=== PATIENT | female | born 1955 | race Caucasian/White ===

== ENCOUNTER → 2017-06-01 | Outpatient (CLI) | payer OTHER ==
[~2017-06-01] MED LIST: CLX20 PO; SIMV40TA2 PO; SYN50 PO; TRAZ50TA35 PO
--- NOTE | 2017-06-01 15:21 | MAMMOGRAPHY REPORT ---
UNILATERAL LEFT DIGITAL DIAGNOSTIC MAMMOGRAM TOMOSYNTHESIS WITH CAD AND TARGETED LEFT ULTRASOUND: CLINICAL HISTORY: Callback from screening mammogram for left breast asymmetry. TECHNIQUE: Breast tomosynthesis in addition to standard 2D mammography was performed. Current study was also evaluated with a Computer Aided Detection (CAD) system. Spot compression left CC, left X CC L, left MLO tomosynthesis images including C views were obtained. COMPARISON: Comparison is made to exams dated: 05/20/2017 mammogram, 05/19/2016 mammogram, 05/28/2015 mammogram, 05/16/2015 mammogram, 06/05/2014 mammogram, and 05/15/2014 mammogram - [facility]. BREAST COMPOSITION: There are scattered areas of fibroglandular density in the left breast. FINDINGS: Spot compression views demonstrate an obscured mass at the anterior aspect of the lumpectom y bed in the left upper outer quadrant measuring approximately 13 mm. The finding is new compared to prior exams. Targeted ultrasound was performed of the left upper outer quadrant in the region of the mammographic mass. In the left breast at 1:00, approximately 3 cm from the nipple, there is a hypoechoic solid-ap pearing mass with internal vascularity measuring 12 x 5 x 11 mm. The margins are not circumscribed. This is located immediately adjacent to an area of hypoechoic shadowing consistent with postsurgical scarring. This corresponds with the mammographic mass and is indeterminant. Recommend ultrasound-g uided core needle biopsy for further evaluation. IMPRESSION: ACR BI-RADS CATEGORY 4: SUSPICIOUS, TARGETED ULTRASOUND ACR BI-RADS CATEGORY 4: SUSPICIO US New 12 mm hypoechoic solid-appearing mass at the anterior aspect of the lumpectomy bed in the left 1: 00 breast. The mass is indeterminate and ultrasound-guided core needle biopsy is recommended or furt her evaluation. A phone call was made to the physician's office to confirm faxed results were received. The patient has been verbally notified of the results. She tentatively scheduled the biopsy before leaving the [employer]. Approximately 10% of breast cancers are not detected with mammography. A negative mammographic report should not delay biopsy if a clinically suggestive mass is present. Soha Humphrey M.D. ah/:06/01/2017 11:08:05 Online Producer: Blank FUENTES(R)(M), [facility] letter sent: Abnormal 4/5 BI-RADS Code: ACR BI-RADS Category 4: Suspicious Ultrasound BI-RADS: ACR BI-RADS Category 4: Suspici ous
== END | disposition home or self-care (01) ==
LOC: C.MAMM 10:41
PROVIDERS: ATTEND Internal Medicine
DX: N64.89 Other specified disorders of breast (principal); N63.20 Unspecified lump in the left breast, unspecified quadrant

== ENCOUNTER → 2017-06-07 | Outpatient (CLI) | payer OTHER ==
--- NOTE | 2017-06-07 08:28 | Discharge Instructions ---
Discharge Instructions Procedure Procedure Date: Jun 07, 2017. Reason for visit: Left Mass. Discharge Discharge Date: Jun 07, 2017. Discharge Diagnosis: post left breast ultrasound guided core biopsy Instructions Activity Recommendations: Additional Limitations (see below) Return to School/Work: no limitations Recommended Home Diet: No Limitations Provider Instructions: ACTIVITY RECOMMENDATIONS: * No lifting, pushing, pulling or exercising the affected side for three days. RETURN TO SCHOOL/WORK: * You may return to work/school after the procedure, but do not perform any strenuous activities for 24 to 48 hours. MEDICATIONS: * Tylenol (two 325 mg) every four to six hours if needed for mild pain (if not allergic to Tylenol). DIET: * Resume previous diet. SPECIAL CARE INSTRUCTIONS: * Keep biopsy site dry for 24 hours. May shower after 24 hours, but do not soak (bathe) incision. * May remove Tegaderm (plastic patch) tomorrow AFTER showering. * Leave the steri-strips on for one week. Allow the steri-strips to fall off by themselves. If not off after one week, you may remove them. You may place a Bandaid crosswise over the strips, if desired. * Apply ice 10 minutes on and 10 minutes off as needed. * Wear a bra at bedtime to sleep more comfortably for 2-3 days. * Your referring physician should have the results after approximately 5 to 7 business days. * Call for unusual bleeding, fever, drainage, etc or if you have any questions call [phone] during normal business hours or after hours call Dr Ramirez, . FOLLOW UP VISIT: Follow-up with Referring Physician as scheduled. Allergies Coded Allergies: Erythromycin (Verified Allergy, Unknown, 08/22/09) Penicillins (Verified Allergy, Unknown, DR ANDRES GAVE OK TO GIVE ANCEF FOR OR 03/31/07, 08/22/09) Kurt Bui Recommendations: Call your doctor if: * Temperature above 101 degrees * Pain not relieved by pain medicine ordered * There is increased drainage or redness from any incision * You have any unanswered questions or concerns. Your Doctors Instructions noted above were prepared by provider Breanne Ramirez. Patient Signature Section: Patient Instructions Signature Page Tati Will Patient (or Guardian) Signature/Date: I have read and understand the instructions given to me by my caregivers. Caregiver/RN/Doctor Signature/Date: The above-named patient and/or guardian has received patient instructions on this date. + Original Patient Signature Page (only) stays with chart. Please make copy for patient.
--- NOTE | 2017-06-14 09:32 | MAMMOGRAPHY REPORT ---
UNILATERAL LEFT DIGITAL DIAGNOSTIC MAMMOGRAM TOMOSYNTHESIS: 06/07/2017 CLINICAL HISTORY: Status post ultrasound guided core biopsy of an indeterminate solid 1.1 cm mass lorenzo r the surgical site in the left upper outer quadrant (1:00 axis). Please refer to the report from left breast ultrasound guided core biopsy performed at the same time for full detail. IMPRESSION: POST PROCEDURE IMAGING FOR MARKER PLACEMENT Please refer to the report from left breast ultrasound guided core biopsy performed at the same time for full detail. Approximately 10% of breast cancers are not detected with mammography. A negative mammographic report should not delay biopsy if a clinically suggestive mass is present. Breanne Ramirez M.D. ay/:06/07/2017 08:27:10 Trimming Press Operator: Omid FUENTES(R)(M), [facility] BI-RADS Code: Post Procedure Imaging For Marker Placement
--- NOTE | 2017-06-14 09:32 | MAMMOGRAPHY REPORT ---
ULTRASOUND GUIDED BIOPSY LEFT BREAST: 06/07/2017 CLINICAL HISTORY: 61-year-old woman with a history of remote left breast cancer status post lumpectom y and radiation therapy. She presents for ultrasound-guided core biopsy of a new 1.1 cm indeterminat e solid mass anterior to the surgical site. COMPARISON: Comparison is made to exams dated: 06/01/2017 ultrasound, 06/01/2017 mammogram, 7 mammogram, 05/19/2016 mammogram, 05/28/2015 mammogram, and 05/16/2015 mammogram - [facility]. PATIENT CONSENT: The procedure, risks and benefits were discussed with the patient and informed conse nt was obtained both verbally and in writing. Specific risks to this procedure include: bleeding, in fection, puncture of adjacent structure, nontarget biopsy, sampling error, pain, metal allergy and me dication reaction. PROCEDURE DESCRIPTION: A time out was performed and the left breast was agreed as the site of biopsy. The skin was prepped and draped in the usual sterile fashion. The solid mass in the 1:00 left breast was chosen as the target for biopsy. Subcutaneous and intraparenchymal 1% buffered lidocaine, with a nd without epinephrine, was administered as local anesthesia. A skin incision was made. Through the incision, 5 samples were taken with a 14 gauge Achieve biopsy device. A ribbon shaped metallic marker was placed at the biopsy site. Hemostasis was achieved after manual compression. The patient tolerat ed the procedure well and there was no immediate complication. The samples were sent to the patholog y department in an appropriately labeled container. Postprocedure left CC and ML tomosynthesis images were obtained. A new ribbon-shaped biopsy marker c lip is seen within the mammographic mass in question. There is minimal postbiopsy hematoma best seen on the ML view. IMPRESSION: ULTRASOUND GUIDED BIOPSY Status post ultrasound guided core biopsy of an indeterminate solid 1.1 cm mass anterior to the lumpe ctomy bed in the 1:00 left breast, with ribbon-shaped biopsy marker clip placed at the site. The patient will receive notification of the biopsy results from her referring physician. Breanne Ramirez M.D. ay/:06/07/2017 08:38:15 Hander In: Omid ORDAZ)(Lupe), [facility]
== END | disposition home or self-care (01) ==
LOC: C.MAMM 07:22
PROVIDERS: ATTEND Internal Medicine
DX: C50.912 Malignant neoplasm of unspecified site of left female breast (principal)

== ENCOUNTER → 2017-07-20 | Outpatient (CLI) | payer OTHER ==
[~2017-07-20] MED LIST changes: +ACET-1311 PO; +ATEN-173 PO; +BUPR100T8 PO; +CHLOR-TAB PO; +CIPR250T3 PO; +CITA40TA4 PO; +GABA-112 PO; +LEVO100T7 PO; +PRAV20TA PO
--- NOTE | 2017-07-20 11:56 | DIAGNOSTIC IMAGING REPORT ---
PET/CT SKULL-THIGH HISTORY: Breast carcinoma BREAST CANCER TECHNIQUE: PET/CT was performed from the base of the skull through the pelvis following the intravenous administration of mCi of F18-FDG. Non-contrast CT imaging was performed over the same range without breath-hold for attenuation correction of PET images and anatomic correlation, but not for primary interpretation as it is not of standard diagnostic quality. CT DOSE: COMPARISON: None. FINDINGS: HEAD AND NECK: Moderately compromised evaluation due to patient somatic motion and muscle spasm/movement. Small focus of increased activity left thyroid bone felt to be artifactual with no anatomic correlate. Mild muscular metabolic activity felt to be secondary to patient motion. CHEST: Increased activity of the posterior paraspinal musculature of the basis of patient motion. Minimal activity within a small hiatal hernia. Minimal activity on a postoperative basis left breast region. Minimal scattered increase in activity of several ribs and/or intercostal regions again without CT correlate. Motion/muscular spasm is suspected as etiology. 6 mm nodule right middle lobe without increased activity ABDOMEN/PELVIS: Below the diaphragm, tracer is distributed physiologically in the gastrointestinal and genitourinary tracts. There is no significant lymphadenopathy and no FDG-avid disease. MUSCULOSKELETAL: There is no FDG-avid or destructive bone lesion. IMPRESSION: 1. Difficult scan to interpret due to considerable patient muscle spasm and motion. 2. Postoperative activity left breast considered unremarkable. 3. Scattered foci of increased activity within the soft tissue neck chest and abdomen, the majority which appears to be secondary to patient motion as well as muscular activity during the scan. 4. Overall, this study is considered to be negative for metastatic disease within the limitations discussed above. The above report was generated using voice recognition software. It may contain grammatical, syntax or spelling errors. Electronically signed by: Man Zuniga M.D. 07/20/2017 11:54 AM Dictated Date/Time: 07/20/2017 11:39 AM
== END | disposition home or self-care (01) ==
LOC: C.PET 06:30
PROVIDERS: ATTEND Internal Medicine Hematology
DX: C50.412 Malignant neoplasm of upper-outer quadrant of left female breast (principal); Z17.0 Estrogen receptor positive status [ER+]

== ENCOUNTER → 2017-08-23 | Outpatient (CLI) | payer OTHER ==
[~2017-08-23] MED LIST changes: -CLX20 PO; -SIMV40TA2 PO; -SYN50 PO; -TRAZ50TA35 PO
--- NOTE | 2017-08-23 14:04 | DIAGNOSTIC IMAGING REPORT ---
LYMPH SENTINEL NODE ID CLINICAL HISTORY: C50.912 Recurrent breast cancer, leftBILATERAL E X0D E BILATERAL bilateral lymphoscintigraphy TECHNIQUE: Bilateral periareolar administration of technetium 99m lymphocele COMPARISON STUDY: None FINDINGS: A total of 0.542 mCi technetium 99m lymphocele was administered in a periareolar distribution of the left breast. A total of 0.517 mCi technetium 99m lymphocele was administered to the right breast and a right periareolar region. IMPRESSION: Successful bilateral periareolar injections for recurrent breast carcinoma. No complications. The above report was generated using voice recognition software. It may contain grammatical, syntax or spelling errors. Electronically signed by: Man Zuniga M.D. 08/23/2017 2:03 PM Dictated Date/Time: 08/23/2017 2:01 PM
== END | disposition home or self-care (01) ==
LOC: C.NUCL 13:11
PROVIDERS: ATTEND Surgery
DX: C50.912 Malignant neoplasm of unspecified site of left female breast (principal)

== ENCOUNTER 2017-08-24 05:13 | Inpatient (IN) | payer OTHER ==
[2017-08-10 14:54] VITALS: BMI 35.0
--- NOTE | 2017-08-10 15:34 | PAT Medication Instructions ---
Service Date Aug 10, 2017. Current Home Medication List Acetaminophen (Tylenol), 650 MG PO PRN Atenolol (Tenormin), 12.5 MG PO QPM Bupropion (Wellbutrin Sr), 100 MG PO QPM Citalopram (Citalopram Hydrobromide), 1 TAB PO QAM Gabapentin (Neurontin), 100 MG PO TID Levothyroxine Sodium (Levothyroxine Sodium), 1 TAB PO QAM Pravastatin (Pravachol ), 40 MG PO QAM [Chlor-Tab], 4 MG PO PRN Medication Instructions For Your Scheduled Surgery - Hold the following medications the morning of surgery: [Chlor-Tab], 4 MG PO PRN - Take the following medications the morning of surgery with a sip of water OTHERWISE NOTHING TO EAT OR DRINK AFTER MIDNIGHT: Acetaminophen (Tylenol), 650 MG PO PRN (may take if needed up to 4 hours prior to surgery) Levothyroxine Sodium (Levothyroxine Sodium), 1 TAB PO QAM Citalopram (Citalopram Hydrobromide), 1 TAB PO QAM Gabapentin (Neurontin), 100 MG PO TID Pravastatin (Pravachol ), 40 MG PO QAM - Take the following medications as scheduled the night before surgery: Acetaminophen (Tylenol), 650 MG PO PRN Atenolol (Tenormin), 12.5 MG PO QPM Bupropion (Wellbutrin Sr), 100 MG PO QPM Gabapentin (Neurontin), 100 MG PO TID If you have any questions please call us at [phone] or [phone] or [phone]
[2017-08-10 16:15] LABS: BASO % 0.8 %; BASO ABS # 0.04 K/uL (0-0.2); EOS % 6.4 %; EOS ABS # 0.32 K/uL (0-0.5); HEMATOCRIT 38.4 % (37-47); HEMOGLOBIN 12.8 g/dL (12.0-16.0); IG# 0.01 K/uL (0.00-0.02); LYMPH % 33.9 %; LYMPH ABS # 1.69 K/uL (1.2-3.4); MEAN CELL VOLUME 88.5 fL (80-100); MEAN CORPUSCULAR HEMOGLOBIN 29.5 pg (25-34); MEAN CORPUSCULAR HGB CONC 33.3 g/dl (32-36); MEAN PLATELET VOLUME 9.9 fL (7.4-10.4); NEUT % 48.7 %; NEUT ABS # 2.43 K/uL (1.4-6.5); PLATELET COUNT 236 K/uL (130-400); RED CELL DISTRIBUTION WIDTH CV 13.7 % (11.5-14.5); RED CELL DISTRIBUTION WIDTH SD 44.8 fL (36.4-46.3); WHITE BLOOD COUNT 4.99 K/uL (4.8-10.8)
[2017-08-10 16:23] LABS: ALBUMIN 3.6 gm/dl (3.4-5.0); CALCIUM 9.2 mg/dl (8.5-10.1); CREATININE 1.28 mg/dl (0.60-1.20); POTASSIUM 4.5 mmol/L (3.5-5.1)
[2017-08-10 16:25] LABS: PTT PATIENT 24.5 SECONDS (21.0-31.0)
[2017-08-10 16:26] LABS: TOTAL PROTEIN 7.2 gm/dl (6.4-8.2)
[~2017-08-24] VITALS: Ht 147.3 cm; Wt 76.7 kg
[~2017-08-24 05:13] MED LIST changes: -CIPR250T3 PO
[2017-08-24 05:45] VITALS: BP 114/74; PULSE 71; TEMP 37.3; O2SAT 98; Ht 147.3 cm; Wt 76.7 kg
[2017-08-24] MEDS ORDERED: SCOPOLAMINE 1.5 MG TDSY TD SCH (06:00)
[2017-08-24] MEDS ORDERED: CLINDAMYCIN IV 900 MG in DEXTROSE 5% 50ML IV SCH (06:00)
[2017-08-24] MEDS: LACTATED RINGER'S 1000ML 1,000 ML IV SCH ×3 (06:01→20:23)
[2017-08-24] MEDS ORDERED: ONDANSETRON INJ 2 MG/ML 2 ML VIAL IV PRN ×2 (06:30→17:30)
[2017-08-24] MEDS ORDERED: EpHEDrine SULFATE INJ 50 MG/ML AMP IV PRN (06:30)
[2017-08-24] MEDS ORDERED: PROMETHAZINE HCL INJ 12.5 MG in SODIUM CHLORIDE 0.9% 50ML 50 ML IV PRN ×2 (06:30→17:30)
[2017-08-24] MEDS ORDERED: ATROPINE SULFATE 0.1 MG/ML 5ML SYR IV PRN (06:30)
[2017-08-24] MEDS ORDERED: PHENYLEPHRINE 100MCG/ML 5ML SYR IV PRN (06:30)
[2017-08-24] MEDS ORDERED: HYDROmorphone INJ 1 MG/ML SYR IV PRN (06:30)
[2017-08-24] MEDS ORDERED: ROCURONIUM BROMIDE 10 MG/ML 5 ML VIAL IV ONE (06:49)
[2017-08-24] MEDS ORDERED: PROPOFOL IV EMULSION 10 MG/ML 20 ML VIAL IV ONE (06:49)
[2017-08-24] MEDS ORDERED: LIDOCAINE HCL 2% 2 ML VIAL (20MG/ML) ONE (06:49)
[2017-08-24] MEDS ORDERED: MIDAZOLAM HCL 1 MG/ML 2ML VIAL ONE (06:50)
[2017-08-24] MEDS ORDERED: FENTANYL CITRATE INJ 50 MCG/1 ML 2 ML VIAL ONE ×3 (06:50→18:47)
--- NOTE | 2017-08-24 06:51 | History & Physical Bridge Note ---
H&P Re-Evaluation Bridge Note: I have examined the patient, reviewed the History & Physical and in the interval since the performance of the History & Physical I have noted the following changes of clinical significance: No changes noted
[2017-08-24] MEDS ORDERED: BUPIVACAINE 0.25% 30 ML VIAL ONE ×2 (06:58→11:08)
[2017-08-24] MEDS ORDERED: LIDOCAINE/EPINEPHRINE 1% 20 ML VIAL ONE (06:58)
[2017-08-24] MEDS ORDERED: BACITRACIN 50000 UNIT VIAL ONE ×2 (06:59)
[2017-08-24] MEDS ORDERED: CEFAZOLIN SOD 1 GM VIAL ONE (06:59)
[2017-08-24] MEDS ORDERED: GENTAMICIN SULFATE 40 MG/ML 2 ML VIAL ONE (06:59)
[2017-08-24] MEDS ORDERED: ISOSULFAN BLUE 10 MG/ML VIAL 5 ML ONE (07:15)
[2017-08-24] MEDS ORDERED: KETAMINE HCL INJ 50 MG/ML 10 ML VIAL ONE (07:29)
--- NOTE | 2017-08-24 09:39 | [facility] Operative Report ---
Operative Report Operative Date Aug 24, 2017. Pre-Operative Diagnosis -left breast cancer (Dr. Caleb New) -encounter for breast reconstruction following mastectomy (Dr. Ellen Coon) Post-Operative Diagnosis -left breast cancer (Dr. Caleb New) -encounter for breast reconstruction following mastectomy (Dr. Ellen Coon) Procedure(s) Performed Bilateral Breast Mastectomy with Bilateral [place] Lymph Node Biopsy - Dr. New Bilateral Transverse Rectus Abdominus Myocutaneous Flap - Dr. Coon Surgeon Dr. Caleb New, Dr. Ellen Coon Director Of [employer] Surgeon(s) Luis Manuel Fagan PA-C, Yoana Torres PA-C, Liz Villar PA-C Estimated Blood Loss Dr. New -30ml Findings negative sentinel lymph nodes both sides Specimens Frozen #1 Right [place] Lymph Node - STAT specimen sent to lab at 0807 by Kermit Shearer OR Tawana Frozen #2 Left [place] Lymph Node - STAT specimen sent to lab at 0857 by Karolina Gilliam Fresh Specimen: A.) Right Breast - long silk lateral - sent to lab at 0846 by Karolina gilliam B.) Left Breast - long silk lateral - sent to lab at 0936 by Kermit Shearer OR tawana Anesthesia Type General I attest to the content of the Intraoperative Record and any orders documented therein. Any exceptions are noted below.
[2017-08-24] MEDS ORDERED: HYDROmorphone INJ 2 MG/ML SYR/VIAL ONE (09:49)
--- NOTE | 2017-08-24 10:06 | OPERATIVE REPORT ---
DATE OF OPERATION: 08/24/2017 NAME OF OPERATION: Bilateral mastectomy with bilateral sentinel lymph node biopsy. PREOPERATIVE DIAGNOSIS: Left breast cancer with recurrence. POSTOPERATIVE DIAGNOSIS: Same. STAFF SURGEON: Caleb New MD. HARNESS CUTTER: Luis Manuel Fagan PA-C and Yoana Torres PA-C. ANESTHESIA: General. DESCRIPTION OF THE PROCEDURE: The patient was in the operating room on the operating room table in supine position. Her arms were extended. A Cespedes catheter, pneumatic stockings and orogastric tube were placed. After appropriate anesthesia, her chest and abdomen were prepped and draped in usual fashion. We approached the right side first which was the side that was felt to be benign and initially made an incision in the right axilla. Using the Neoprobe, we were able to find the sentinel node. It was sent for frozen section. During the frozen section, we performed mastectomy. Frozen section was negative. Circular incision was made around the nipple areolar complex, then dissecting the breast tissue away from the subcutaneous tissue from the sternum, superiorly to the axilla and then inferiorly and then the breast tissue was dissected away from the chest wall, taking the pectoralis fascia. It was marked with a long silk suture laterally on the right breast tissue. At this point, then we approached the left side which was where the recurrent tumor was. The patient had had previous lumpectomy 20 years prior with radiation treatment. We made an incision through previous scar tissue in the left axilla. We were able to use the Neoprobe to identify a sentinel lymph node which was sent for routine frozen section. During the frozen section, we did perform mastectomy. Frozen section was negative. A circumferential incision was made in the central portion of the breast, incorporating the nipple areolar complex and then the breast tissue was dissected away from the subcutaneous tissue. It was somewhat more adherent secondary to history of radiation treatment and prior surgery. The breast tissue was then dissected away from the pectoralis major muscle with some difficulty secondary to scar tissue from the same etiology and then it was marked with a long silk suture lateral on the left breast tissue. At this point, the axillary incisions were closed, reapproximating the deep tissue using 2-0 plain catgut suture then the skin using 4-[address] Coon took over at this point to proceed with her part of the operation. As a note my assistants both helped with retraction, prepping and draping, exposure, excision of the breast tissue and lymph nodes and then closure of the axilla bilaterally. I attest to the content of the Intraoperative Record and any orders documented therein. Any exception s are noted below.
[2017-08-24] MEDS ORDERED: ACETAMINOPHEN 1000 MG/100 ML IV IV ONE (12:35)
[2017-08-24] MEDS ORDERED: CLINDAMYCIN PHOS 150 MG/ML 2 ML VIAL ONE (12:36)
[2017-08-24] MEDS ORDERED: EpHEDrine SULFATE 50MG/5ML SYR ONE (12:57)
[2017-08-24] MEDS ORDERED: PHENYLEPHRINE 100MCG/ML 5ML SYR ONE ×2 (12:57→13:33)
[2017-08-24] MEDS ORDERED: EpHEDrine SULFATE INJ 50 MG/ML AMP ONE ×2 (12:57→16:15)
[2017-08-24] MEDS ORDERED: PHENYLEPHRINE HCL INJ 10 MG/ML VIAL ONE (13:34)
[2017-08-24] MEDS ORDERED: BUPIVACAINE 0.25% 30 ML VIAL INJ ONE (13:44)
[2017-08-24] MEDS: CHECK SCOPOLAMINE PATCH PLACEMENT SCH (16:00)
[2017-08-24] MEDS ORDERED: ONDANSETRON INJ 2 MG/ML 2 ML VIAL ONE ×2 (16:45→16:50)
[2017-08-24] MEDS ORDERED: DEXAMETHASONE SOD INJ 4 MG/ML VIAL ONE (16:50)
[2017-08-24] MEDS ORDERED: GLYCOPYRROLATE INJ 0.2 MG/ML VIAL ONE (16:58)
[2017-08-24] MEDS ORDERED: NEOSTIGMINE METHYLSULFATE 5 MG/5 ML SYR ONE (16:58)
[2017-08-24] MEDS ORDERED: OXYCODONE/ACETAMINOPHEN 5-325 TAB PO PRN (17:30)
[2017-08-24] MEDS: CHLORPHENIRAMINE PO SCH (17:30)
[2017-08-24] MEDS ORDERED: MoRPHine SULFATE 2 MG/ML CARP IV PRN (17:30)
[2017-08-24] MEDS ORDERED: OXAZEPAM 10MG CAP PO PRN (17:30)
[2017-08-24] MEDS ORDERED: MoRPHine SULFATE 4 MG/ML 1 ML CARP\\VIAL IV PRN (17:30)
[2017-08-24] MEDS ORDERED: DiphenhydrAMINE HCL 50 MG/ML VIAL IV PRN (17:30)
[2017-08-24] MEDS ORDERED: CLINDAMYCIN IV 600 MG in DEXTROSE 5% 50ML 50 ML IV SCH (17:30)
--- NOTE | 2017-08-24 17:40 | [facility] Post Operative Brief Note ---
Immediate Operative Summary Operative Date Aug 24, 2017. Pre-Operative Diagnosis -left breast cancer (Dr. Caleb New) -encounter for breast reconstruction following mastectomy (Dr. Ellen Coon) Post-Operative Diagnosis -left breast cancer (Dr. Caleb New) -encounter for breast reconstruction following mastectomy (Dr. Ellen Coon) Procedure(s) Performed Bilateral Breast Mastectomy with Bilateral [place] Lymph Node Biopsy - Dr. New Bilateral Transverse Rectus Abdominus Myocutaneous Flap - Dr. Coon Surgeon Dr. Caleb New, Dr. Ellen Coon Airline Stewardess Surgeon(s) Luis Manuel Fagan PA-C, Yoana Torres PA-C, Liz Villar PA-C Estimated Blood Loss Dr. [id number] Findings Consistent with Post-Op Diagnosis bilateral flaps pink and viable at close of case Specimens Frozen #1 Right [place] Lymph Node - STAT specimen sent to lab at 0807 by Kermit Shearer OR Tawana Frozen #2 Left [place] Lymph Node - STAT specimen sent to lab at 0857 by Karolina Woody OR Tawana Fresh Specimen: A.) Right Breast - long silk lateral - sent to lab at 0846 by Karolina Woody OR tawnaa B.) Left Breast - long silk lateral - sent to lab at 0936 by Kermit Shearer OR tawana Drains NAZIA x4 Anesthesia Type General Complication(s) none Disposition Disposition: Recovery Room / PACU
[2017-08-24] MEDS: FENTANYL CITRATE INJ 50 MCG/1 ML 2 ML VIAL IV PRN ×4 (18:49→19:06)
[2017-08-24] MEDS ORDERED: KETOROLAC 0.5% OP SOLN 3 ML BTL OP PRN (19:15)
--- NOTE | 2017-08-24 19:21 | Anesthesiology Progress Note ---
Anesthesia Post Op Note Date & Time Aug 24, 2017 at 19:08 Vital Signs Pain Intensity: 7 Vital Signs Past 12 Hours Date Time Temp Pulse Resp B/P (MAP) Pulse Ox O2 Delivery O2 Flow Rate FiO2 08/24/17 19:00 36.4 106 16 116/76 97 Nasal Cannula 3 08/24/17 18:50 36.4 100 16 117/76 98 Nasal Cannula 3 08/24/17 18:40 36.4 103 20 123/82 98 Nasal Cannula 3 08/24/17 18:30 105 16 98/68 97 Nasal Cannula 3 08/24/17 18:20 108 16 97/65 99 Oxymask 10 08/24/17 18:10 110 16 110/87 99 Oxymask 10 08/24/17 18:04 36.3 112 16 97/70 98 Oxymask 10 Notes Mental Status: alert / awake / arousable, participated in evaluation Pt Amnestic to Procedure: Yes Nausea / Vomiting: adequately controlled Pain: adequately controlled Airway Patency, RR, SpO2: stable & adequate BP & HR: stable & adequate Hydration State: stable & adequate Anesthetic Complications: no major complications apparent Pt doing well. Complaining of a foreign body sensation to right eye in PACU with some pain. Right eye was examined. No obvious foreign body noted in eye, under the upper or lower eyelid. Extraocular motion intact and no obvious decrease in visual acuity. Some lacrimation noted. Without doing a fluorescein exam, I cannot rule out a small corneal abrasion, although the patient's eyes were well taped right after induction, throughout intraop period and emergence. Discussed with patient regarding her eye and plan to treat with ketorolac eye drop as well as ofloxacin for three days. Told patient that if eye is not better or there are visual changes, then we will consult improvement coordinator. Pt agreed with plan. Will follow up during our post op round tomorrow.
[2017-08-24] MEDS: OFLOXACIN 0.3% OP SOLN 5 ML BTL OP SCH (19:23)
[2017-08-24 19:50] VITALS: O2SAT 97
[2017-08-24 20:20] VITALS: BP 102/62; PULSE 110; TEMP 36.8; O2SAT 96
[2017-08-24 21:00] VITALS: BP 109/73; PULSE 99; TEMP 36.9; O2SAT 98
[2017-08-24] MEDS ORDERED: IV FLUIDS COMPLETED PRN (21:00)
[2017-08-24] MEDS: CLINDAMYCIN IV 600 MG in DEXTROSE 5% 50ML 50 ML IV SCH (21:21)
[2017-08-24] MEDS: GABAPENTIN 100 MG CAP PO SCH (21:21)
[2017-08-24] MEDS: BuPROPion SR 100 MG TABCR PO SCH (21:22)
[2017-08-24 22:10] VITALS: BP 96/59; PULSE 102; TEMP 37.1; O2SAT 98
[2017-08-24 22:50] VITALS: BP 91/56; PULSE 99; TEMP 37.2; O2SAT 98
[2017-08-25] VITALS (9 sets, daily range): BP systolic 90–120; BP diastolic 57–80; PULSE 82–97; TEMP 37–37.7; O2SAT 77–94
[2017-08-25] MEDS: ACETAMINOPHEN IV 650 MG in EMPTY BAG 0 ML IV PRN
[2017-08-25] MEDS: MoRPHine SULFATE 2 MG/ML CARP IV PRN ×3 (04:07→13:40)
[2017-08-25] MEDS: CHLORPHENIRAMINE PO SCH (05:28)
[2017-08-25] MEDS: CLINDAMYCIN IV 600 MG in DEXTROSE 5% 50ML 50 ML IV SCH (05:28)
[2017-08-25] MEDS: LEVOTHYROXINE 100 MCG TAB PO SCH (05:31)
[2017-08-25] MEDS: OFLOXACIN 0.3% OP SOLN 5 ML BTL OP SCH ×4 (05:33→19:23)
[2017-08-25] MEDS: CHECK SCOPOLAMINE PATCH PLACEMENT SCH ×4 (08:17→23:43)
--- NOTE | 2017-08-25 08:25 | Progress Note ---
Progress Note Date of Service Aug 25, 2017. Progress Note POD #1 s/p bilateral TRAM Doing well. Pain reasonably controlled with Ofirmev, onQ. Refusing narcotics currently afebrile VSS incisions C/D/I on breasts/abdomen both flaps warm and viable umbilicus appears viable JPs all serosanguinous Left breast 20, right breast 30; abdomen 70/60 cc May be OOB if desired; may remove rivero when patient feels ready remain in semifowler's when in bed
[2017-08-25] MEDS ORDERED: BISACODYL 10 MG SUPP PR PRN (08:30)
[2017-08-25] MEDS: MULTIVITAMIN TAB PO SCH (08:49)
[2017-08-25] MEDS: GABAPENTIN 100 MG CAP PO SCH ×3 (08:51→21:12)
[2017-08-25] MEDS: ENOXAPARIN 40 MG/0.4 ML SYR SQ SCH (08:51)
[2017-08-25] MEDS ORDERED: CITALOPRAM 40 MG TAB PO SCH (09:00)
[2017-08-25] MEDS ORDERED: PRAVASTATIN SOD 40 MG TAB PO SCH (09:00)
[2017-08-25 09:09] LABS: BASO % 0.2 %; BASO ABS # 0.02 K/uL (0-0.2); HEMATOCRIT 31.8 % (37-47); HEMOGLOBIN 10.7 g/dL (12.0-16.0); IG# 0.02 K/uL (0.00-0.02); LYMPH % 12.9 %; LYMPH ABS # 1.35 K/uL (1.2-3.4); MEAN CELL VOLUME 88.6 fL (80-100); MEAN CORPUSCULAR HEMOGLOBIN 29.8 pg (25-34); MEAN CORPUSCULAR HGB CONC 33.6 g/dl (32-36); MEAN PLATELET VOLUME 9.6 fL (7.4-10.4); MONO % 12.2 %; MONO ABS # 1.28 K/uL (0.11-0.59); NEUT % 74.5 %; NEUT ABS # 7.79 K/uL (1.4-6.5); PLATELET COUNT 194 K/uL (130-400); RED CELL DISTRIBUTION WIDTH CV 14.2 % (11.5-14.5); WHITE BLOOD COUNT 10.46 K/uL (4.8-10.8)
[2017-08-25 09:22] LABS: INR 1.1 (0.9-1.1)
[2017-08-25 09:32] LABS: CALCIUM 8.4 mg/dl (8.5-10.1); CREATININE 1.38 mg/dl (0.60-1.20); POTASSIUM 4.8 mmol/L (3.5-5.1)
[2017-08-25] MEDS: LACTATED RINGER'S 1000ML 1,000 ML IV SCH ×2 (10:04→21:49)
[2017-08-25] MEDS: DOCUSATE SODIUM 100 MG CAP PO SCH ×2 (10:04→21:14)
--- NOTE | 2017-08-25 10:34 | Anesthesiology Progress Note ---
Anesthesia Post Op Note Date & Time Aug 25, 2017 at 10:24 Vital Signs Vital Signs Past 12 Hours Date Time Temp Pulse Resp B/P (MAP) Pulse Ox O2 Delivery O2 Flow Rate FiO2 08/25/17 07:51 37.2 96 16 102/59 (73) 92 Room Air 08/25/17 07:50 Room Air 08/25/17 03:59 37.4 97 16 90/57 (68) 93 Room Air 08/25/17 00:45 Room Air 08/24/17 22:50 37.2 99 18 91/56 (68) 98 Nasal Cannula 3.0 Notes Mental Status: alert / awake / arousable, participated in evaluation Pt Amnestic to Procedure: Yes Nausea / Vomiting: adequately controlled Pain: adequately controlled Airway Patency, RR, SpO2: stable & adequate BP & HR: stable & adequate Hydration State: stable & adequate Anesthetic Complications: no major complications apparent Spoke with patient regarding complaints of Right eye discomfort after her procedure yesterday. Patient feels much better this morning and her eye feels normal at time of exam and reports only rarely feels as if something is stuck in her eye briefly. She continues to receive Ofloxacin eye gtts and has only used the Ketorolac eye gtts PRN for pain once after the procedure. Eye appears normal on exam with no redness noted or excessive lacrimation. No changes in vision reported by patient. Instructed patient to report if she feels any changes in her condition.
[2017-08-25] MEDS ORDERED: NURSING VERBAL MED ORDER ONE (11:00)
--- NOTE | 2017-08-25 11:03 | OPERATIVE REPORT ---
DATE OF OPERATION: 08/24/2017 PREOPERATIVE DIAGNOSIS: Acquired absence of bilateral breasts due to recurrent left breast carcinoma. PROCEDURE: Bilateral breast reconstruction with pedicled TRAM flap and reinforcement of the abdominal wall with Strattice. SURGEON: Dr. Ellen Coon. NIGHT MANAGER: Liz Villar PA-C and Luis Manuel Fagan PA-C. ANESTHESIA: General. COMPLICATIONS: None. INDICATION FOR THE PROCEDURE: The patient is a 62-year-old female who had a history of left breast carcinoma, status post lumpectomy and radiation and subsequently developed a recurrence. She desired to undergo bilateral mastectomy with immediate breast reconstruction. This was performed in conjunction with Dr. New, who has separately dictated his mastectomy and sentinel lymph node operative report. BRIEF DESCRIPTION OF THE PROCEDURE: The risks, benefits and alternatives of the procedure were explained to the patient, who agreed and signed consent. She was identified and marked in the preoperative holding area. She was brought to the operating room, where she was placed under general anesthesia and mastectomy portion of the procedure was begun by Dr. New. Following removal of the breast tissue, a time-out procedure was performed and new drapes were placed. I began the bilateral TRAM reconstruction. An elliptical skin panel was marked in the lower abdomen. The upper incision was made first and the skin flap was raised. This was accomplished using a 15 blade scalpel into the dermis with the incision deepened through dermis using electrocautery. The subcutaneous tissue was then divided down to rectus fascia in a bevelled fashion. Anterior abdominal skin was then raised superiorly to the xiphoid process as well as to both costal margins. This was accomplished using electrocautery. Next, a tunnel was created between each mastectomy defect in the inferior medial aspect connecting this to the abdomen. Lower abdominal incision was then made using a scalpel. The dermis and subcutaneous tissues were divided to the anterior abdominal fascia using electrocautery. This too was bevelled away from the flap. Attention was then turned to raising the right rectus flap. The umbilicus was circumscribed using a 15 blade scalpel and lower abdominal skin panel was divided in the midline. I began raising the right flap first. Dissection was carried laterally to medially using electrocautery. The end point of dissection was the lateral aspect of the right rectus muscle. The anterior rectus sheath was then opened approximately 1 cm medial to the lateral aspect of the rectus muscle and 1 cm lateral to medial aspect of the muscle. Dissection was undertaken down to the umbilicus. The remainder of the lower portion of the anterior rectus sheath was divided as previously described. Once the inferior most aspect of the rectus muscle was identified, it was carefully divided using electrocautery. Deep inferior epigastric artery and veins were identified at the lateral most aspect of the muscle. They were ligated using Hemoclips proximally and silk ties distally and were then divided. Next, the muscle flap was raised. This was accomplished using bipolar cautery to dissect the rectus muscle off the transversalis fascia and posterior rectus sheath. Dissection was carried superiorly until the costal margin was reached. Once adequate dissection was accomplished, the musculocutaneous flap was then pulled through the tunnel, which had been previously created. This required the rectus muscle to be reflected over the costal margin. Once the vascularity was determined to be adequate, the flap was reflected back on the rectus muscle and placed in the mastectomy defect. The left rectus abdominis myocutaneous flap was raised and pulled through the tunnel in similar fashion. The anterior rectus sheath was sutured to the posterior rectus sheath at the arcuate line, closing down the transversalis fascia. This was accomplished using 0 Prolene horizontal mattress sutures. The donor defect was then reconstructed using a 16 x 20 piece of extra thick Strattice. This was sutured into place medially along the linea alba using 0 Prolene U stitches, which were sutured through the residual anterior rectus sheath along the midline. We then sutured bilaterally to the anterior rectus fascia, which had been previously divided. This was accomplished under tension using 0 Prolene horizontal mattress sutures. It was reinforced using 0 Prolene suture. A hole was made in the Strattice to the umbilicus. Two 15-Niuean Marvin drains were placed in the abdominal donor defect and closure of the abdominal incision was undertaken. This was accomplished suturing Andriy's fascia with 2-0 Vicryl interrupted sutures. Deep dermis was then closed using 2-0 Vicryl interrupted sutures. Superficial dermis was then closed using 2-0 PDO Quill suture. Skin was closed using Dermabond Prineo. Drains were sutured into place using 3-0 nylon sutures. The umbilical incision had been marked for inset prior to closure. Attention was then turned to insetting the flaps. This was performed on the left first followed by the right. Flap was inset into the mastectomy defect and tacked into place using zack. Skin paddle was then marked and incised in the superficial dermis. The buried portion of the flap was deepithelialized using curved Cowart scissors. Throughout this time, there was healthy bright red bleeding. The lateral aspect of each flap did have some poorly perfused fat and this was removed using a 15 blade scalpel with the remaining flap being pink and healthy. The flap was sutured into place using 3-0 PDS interrupted dermal sutures and skin was closed using 3-0 Monocryl running subcuticular suture. This was performed on the right hand side as well. Throughout the procedure, both flaps were healthy pink and bleeding. Dermabond was applied. The drains had been placed prior to closure. Both drains were sutured into place using 3-0 nylon drain sutures. Attention was lastly turned to the umbilicus. Its new location had been marked prior to closure of the abdominal incision. An inverted triangular incision was made in the anterior abdominal wall in order to reconstruct the umbilicus. Skin and subcutaneous fat was removed using Bovie. Once the umbilical stalk was identified, it was inset using 4-0 chromic interrupted half buried mattress sutures. Light dressings and paper tape were applied. The patient was awakened and transferred to recovery in satisfactory condition. Estimated blood loss 125 mL. There were no complications during the procedure. Liz Villar was present and scrubbed throughout the majority of the procedure and was instrumental in assisting in retracting during raising of the flaps, assisting in inset of the Strattice and closing the abdominal wall and assisting in deepithelializing and insetting of the flap. I attest to the content of the Intraoperative Record and any orders documented therein. Any exception s are noted below.
[2017-08-25] MEDS ORDERED: LACTATED RINGER'S 1000ML 1,000 ML IV SCH (15:00)
[2017-08-25] MEDS ORDERED: LACTATED RINGER'S 1000ML 1,000 ML IV ONE (15:00)
[2017-08-25] MEDS: OXYCODONE/ACETAMINOPHEN 5-325 TAB PO PRN ×2 (15:50→19:24)
[2017-08-25] MEDS: CALCIUM CARBONATE 500 MG CHEWABLE PO PRN (19:33)
[2017-08-25] MEDS ORDERED: PANTOprazole SOD 40 MG TAB PO STA (20:05)
[2017-08-25] MEDS ORDERED: LACTATED RINGER'S 1000ML 500 ML IV ONE (20:30)
[2017-08-25] MEDS: PRAVASTATIN SOD 40 MG TAB PO SCH (21:14)
[2017-08-25] MEDS: BuPROPion SR 100 MG TABCR PO SCH (21:14)
[2017-08-25] MEDS: CITALOPRAM 40 MG TAB PO SCH (21:15)
[2017-08-26] MEDS: ACETAMINOPHEN IV 650 MG in EMPTY BAG 0 ML IV PRN ×2 (00:05→06:43)
[2017-08-26] MEDS: CHLORPHENIRAMINE PO SCH (05:44)
[2017-08-26] MEDS: OFLOXACIN 0.3% OP SOLN 5 ML BTL OP SCH ×4 (05:55→19:00)
[2017-08-26] MEDS: LEVOTHYROXINE 100 MCG TAB PO SCH (06:42)
[2017-08-26 07:40] VITALS: BP 127/85; PULSE 82; TEMP 37.2; O2SAT 97
[2017-08-26] MEDS: CHECK SCOPOLAMINE PATCH PLACEMENT SCH ×3 (07:49→23:29)
--- NOTE | 2017-08-26 08:25 | Progress Note ---
Progress Note Date of Service Aug 26, 2017. Progress Note POD #2 s/p bilateral mastectomy/TRAM Hypotension yesterday resolved after fluid bolus, U/O 1700 cc after fluid bolus. emesis x1 overnight. Pain controlled on Percocet today. tmax 37.6 vss. flaps warm/viable with cap refill bilaterally umbilicus appears viable as does abdominal skin JPs serosanguinous right breast 65, left 35 cc; abdomen 150/190 cc Doing better today PT consult; OOB as tolerated today Will d/c rivero when able to ambulate Labs pending encouraged IS due to low sats yesterday/overnight Reglan for nausea
[2017-08-26] MEDS ORDERED: METOCLOPRAMIDE HCL INJ 5 MG/ML 2 ML VIAL IV. PRN (08:30)
[2017-08-26] MEDS: MULTIVITAMIN TAB PO SCH (08:56)
[2017-08-26] MEDS: PANTOprazole SOD 40 MG TAB PO SCH (08:56)
[2017-08-26] MEDS: DOCUSATE SODIUM 100 MG CAP PO SCH ×2 (08:56→21:37)
[2017-08-26] MEDS: GABAPENTIN 100 MG CAP PO SCH ×3 (08:57→21:37)
[2017-08-26] MEDS: ENOXAPARIN 40 MG/0.4 ML SYR SQ SCH (08:57)
[2017-08-26 09:19] LABS: HEMATOCRIT 30.6 % (37-47); HEMOGLOBIN 10.3 g/dL (12.0-16.0); MEAN CELL VOLUME 88.7 fL (80-100); MEAN CORPUSCULAR HEMOGLOBIN 29.9 pg (25-34); MEAN CORPUSCULAR HGB CONC 33.7 g/dl (32-36); MEAN PLATELET VOLUME 9.8 fL (7.4-10.4); PLATELET COUNT 207 K/uL (130-400); RED CELL DISTRIBUTION WIDTH CV 14.2 % (11.5-14.5); RED CELL DISTRIBUTION WIDTH SD 46.2 fL (36.4-46.3); WHITE BLOOD COUNT 11.29 K/uL (4.8-10.8)
[2017-08-26] MEDS: LACTATED RINGER'S 1000ML 1,000 ML IV SCH (09:23)
[2017-08-26 09:45] LABS: CALCIUM 8.6 mg/dl (8.5-10.1); CREATININE 1.36 mg/dl (0.60-1.20); POTASSIUM 3.8 mmol/L (3.5-5.1)
--- NOTE | 2017-08-26 13:03 | Discharge Instructions ---
Discharge Instructions Date of Service Aug 26, 2017. Admission Reason for Admission: Left Breast Cancer Discharge Discharge Diagnosis / Problem: Left Breast Cancer Discharge Goals Goal(s): Decrease discomfort Activity Recommendations Activity Limitations: as noted below ACTIVITY RECOMMENDATIONS: __Normal activities _x_No bending, lifting or straining. Do not stand or lay straight until comfortable. Do not put any compression on abdomen or breasts. No chocolate or Caffeine containing food/drink. _x_No driving __Driving allowed when you are off pain medications _x_Walking permitted and encouraged to help decrease risk of DVT. __You should have help at home for ___ days DRESSINGS: __No dressings required __Keep dressings dry/in place until first office visit _x_Remove dressings around drain sites and umbilicus and change daily. Do not put any ointments/lotions on your incisions. NO ICE __Apply ice ___ days __Remove dressings and reapply garment __Apply antibiotic ointment (Bacitracin, Neosporin, etc) to wounds 3-4 times/ day for 10 days BATHING: __Keep dressings dry __Sponge bathing permitted _x_Showering permitted. Hook your drains onto a hang and hang in shower to prevent them from pulling and falling out. Let the soapy water run over incisions and gently pat dry. No submerging in water. _x_No swimming, hot tubs or soaking in a tub MEDICATIONS: Resume previous medications unless instructed otherwise by your surgeon. _x_Do not use aspirin, Motrin, Advil or Ibuprofen as these may promote bleeding. Please use Tylenol. _x_Prescription(s) provided: Percocet provided for pain control. Take as needed but be prepared for constipation. OK to use stool softeners, Senokot, milk of magnesium as needed for constipation OTHER INSTRUCTIONS: _x_Record drain output 2-3 times per day. Call the office to have drains removed when output is 10cc/24 hours. You may have one drain removed at a time if ready. Drainage color will turn to an orange/straw color over time. SPECIAL CARE INSTRUCTIONS: * It is normal to have a mild fever after surgery. If your temperature is higher than 101.5 degrees F, please call the office at [phone]. * Constipation is a typical side effect of pain medication. An over-the- counter stool softener will help relieve this. * Leaking around surgical drains may occur and should not cause concern. Sometimes these drains become clogged. If this happens, remove the bulb and milk the clot out of the tube, then replace the bulb. * Drainage from wounds after liposuction is normal and should be expected. Garments will become soiled. You should protect furniture and bedding. This drainage should mostly subside within 2-3 days. Leave garments in place unless instructed to remove them. * If you have unusual drainage from a wound or are concerned you have an infection or have any questions or concerns, please call the office at [phone]. FOLLOW UP VISIT: If not already scheduled, please call the office, , when you return home after surgery to schedule an appointment to be seen next week. You may call at any time with questions or concerns. . Current Hospital Diet Patient's current hospital diet: Regular Diet Discharge Diet Recommended Diet: Regular Diet (no caffiene ) Procedures Procedures Performed: Bilateral Breast Mastectomy with Bilateral [place] Lymph Node Biopsy - Dr. New Bilateral Transverse Rectus Abdominus Myocutaneous Flap - Dr. Coon Pending Studies Studies pending at discharge: yes List of pending studies: pathology Medical Emergencies . Who to Call and When: Medical Emergencies: If at any time you feel your situation is an emergency, please call 911 immediately. . Non-Emergent Contact Non-Emergency issues call your: Primary Care Provider, Surgeon . "Provider Documentation" section prepared by Liz Villar. . VTE Core Measure Inpt VTE Proph given/why not?: Enoxaparin (Lovenox)SQ, SCD's [place] Drug Monitoring Program Search Results: no issues identified
[2017-08-26] MEDS: ACETAMINOPHEN 325 MG TAB PO PRN (13:40)
[2017-08-26 15:37] VITALS: BP 108/74; PULSE 93; TEMP 36.9; O2SAT 96
--- NOTE | 2017-08-26 16:44 | Progress Note ---
Progress Note Date of Service Aug 26, 2017. Progress Note POD #2 s/p bilateral mastectomy/TRAM Hypotension yesterday resolved after fluid bolus, U/O 1700 cc after fluid bolus. emesis x1 overnight. Patient reports pain 2/10. Is not taking Percocet as earlier reported. Has ambulated to chair and door. Is saturated on 2L. Has started to pass flatus. Patient's daugher is concerned about patient's confusion. Has not had PT today. flaps warm/viable with cap refill bilaterally umbilicus appears viable as does abdominal skin right cheek pink- no induration/warmth JPs serosanguinous right breast 95, left 20 cc; abdomen 95/140 cc Doing better today PT consult- discussed with PT- Likely to be seen tomorrow. OOB as tolerated today Will d/c rivero when able to ambulate. Check UA due to patient's confusion. Labs pending. Na low today likely due to fluid bolus. Could be contributing to confusion. Will recheck tomorrow. encouraged IS due to low sats yesterday/overnight. Check CXR continue to observe right cheek Will discuss with Dr. Coon
[2017-08-26] MEDS: CALCIUM CARBONATE 500 MG CHEWABLE PO PRN (19:16)
--- NOTE | 2017-08-26 21:06 | DIAGNOSTIC IMAGING REPORT ---
CHEST 2 VIEWS ROUTINE CLINICAL HISTORY: sob dyspnea COMPARISON STUDY: 11/23/2009 FINDINGS: Moderate air-filled distention of appears to be multiple loops of colon and to lesser extent small bowel. Postoperative changes to the anterior chest wall is noted bilaterally which chest drains in position. Minimal platelike left infrahilar atelectasis. Lungs otherwise appear clear. No evidence pneumothorax. IMPRESSION: 1. Minimal left infrahilar atelectasis. 2. Study of the chest specifically is otherwise negative. 3. Postoperative changes to both breasts regions as described. 4. Generalized ileus The above report was generated using voice recognition software. It may contain grammatical, syntax or spelling errors. Electronically signed by: Man Zuniga M.D. 08/26/2017 9:05 PM Dictated Date/Time: 08/26/2017 9:03 PM
[2017-08-26 21:32] VITALS: BP 118/74; PULSE 92
[2017-08-26] MEDS: CITALOPRAM 40 MG TAB PO SCH (21:36)
[2017-08-26] MEDS: BuPROPion SR 100 MG TABCR PO SCH (21:37)
[2017-08-26] MEDS: PRAVASTATIN SOD 40 MG TAB PO SCH (21:37)
[2017-08-26 21:45] VITALS: O2SAT 95
[2017-08-26 23:23] VITALS: BP 133/80; PULSE 105; TEMP 37.7; O2SAT 94
[2017-08-27] VITALS (13 sets, daily range): BP systolic 100–145; BP diastolic 66–83; PULSE 87–111; TEMP 37.2–38; O2SAT 82–97
[2017-08-27] MEDS: ACETAMINOPHEN 325 MG TAB PO PRN ×2 (00:04→15:59)
[2017-08-27] MEDS: LEVOTHYROXINE 100 MCG TAB PO SCH (05:32)
[2017-08-27] MEDS: CHLORPHENIRAMINE PO SCH (05:32)
[2017-08-27] MEDS: OFLOXACIN 0.3% OP SOLN 5 ML BTL OP SCH ×3 (06:33→15:00)
[2017-08-27 07:51] LABS: HEMATOCRIT 27.3 % (37-47); MEAN CELL VOLUME 87.5 fL (80-100); MEAN CORPUSCULAR HEMOGLOBIN 28.8 pg (25-34); MEAN PLATELET VOLUME 9.4 fL (7.4-10.4); PLATELET COUNT 203 K/uL (130-400); RED CELL DISTRIBUTION WIDTH CV 13.7 % (11.5-14.5); RED CELL DISTRIBUTION WIDTH SD 44.2 fL (36.4-46.3); WHITE BLOOD COUNT 8.57 K/uL (4.8-10.8)
[2017-08-27] MEDS: CHECK SCOPOLAMINE PATCH PLACEMENT SCH ×3 (08:00→23:57)
[2017-08-27] MEDS: GABAPENTIN 100 MG CAP PO SCH ×3 (08:06→20:30)
[2017-08-27] MEDS: ENOXAPARIN 40 MG/0.4 ML SYR SQ SCH (08:06)
[2017-08-27] MEDS: MULTIVITAMIN TAB PO SCH ×2 (08:06→09:00)
[2017-08-27] MEDS: PANTOprazole SOD 40 MG TAB PO SCH (08:07)
[2017-08-27 08:27] LABS: CREATININE 1.05 mg/dl (0.60-1.20)
[2017-08-27] MEDS: DOCUSATE SODIUM 100 MG CAP PO SCH ×2 (10:59→20:29)
--- NOTE | 2017-08-27 11:36 | Progress Note ---
Progress Note Date of Service Aug 27, 2017. Progress Note POD #3 s/p bilateral mastectomy and TRAM Doing better. Denies pain. Daughter reports some confusion. Patient denies UTI symptoms. +flatus, - BM. Has not been evaluated by PT afebrile VSS 97% on 2 L NC flaps pink and viable, abdominal skin and umbilicus viable mastectomy flaps with ecchymosis at SNL sites, but skin viable JPs all serosanguinous right breast 125cc, left 40 cc; abdomen 175 and 220 cc U/A positive for nitrites, but also with numerous epithelial cells Hgb 9, Cr. 1.05 CXR with some atelectasis Overall doing well needs PT eval today wean O2 Discussed with patient and daughter obtaining urine culture vs starting empiric Abx; will obtain culture continued IS, ambulation today If continues to progress, will consider discharge tomorrow
[2017-08-27] MEDS ORDERED: NURSING DECISION MEDICATION ORDER SCH (11:45)
[2017-08-27] MEDS: BuPROPion SR 100 MG TABCR PO SCH (20:29)
[2017-08-27] MEDS: PRAVASTATIN SOD 40 MG TAB PO SCH (20:29)
[2017-08-27] MEDS: CITALOPRAM 40 MG TAB PO SCH (20:29)
[2017-08-28 02:40] VITALS: BP 109/68; PULSE 97; TEMP 37.3; O2SAT 90
[2017-08-28] MEDS: LEVOTHYROXINE 100 MCG TAB PO SCH (05:49)
[2017-08-28] MEDS: CHLORPHENIRAMINE PO SCH (05:50)
[2017-08-28] MEDS: ACETAMINOPHEN 325 MG TAB PO PRN (05:53)
[2017-08-28 07:25] VITALS: BP 116/72; PULSE 86; TEMP 37.3; O2SAT 94
[2017-08-28 07:30] VITALS: O2SAT 94
[2017-08-28] MEDS: MULTIVITAMIN TAB PO SCH (09:33)
[2017-08-28] MEDS: PANTOprazole SOD 40 MG TAB PO SCH (09:34)
[2017-08-28] MEDS: DOCUSATE SODIUM 100 MG CAP PO SCH (09:34)
[2017-08-28] MEDS: GABAPENTIN 100 MG CAP PO SCH (09:34)
[2017-08-28] MEDS: ENOXAPARIN 40 MG/0.4 ML SYR SQ SCH (09:35)
[2017-08-28 09:37] VITALS: O2SAT 96
[2017-08-28] MEDS ORDERED: CIPR250T3 PO ×2 (12:02)
--- NOTE | 2017-08-28 12:06 | Progress Note ---
Progress Note Date of Service Aug 28, 2017. Progress Note POD#4 Doing well today. Confusion improved, able to ambulate, taking Tylenol only for pain. Some wheezing afebrile VSS incisions clean, dry, intact flaps pink and viable, abdominal skin viable ? hematoma at right SLN site JPs all serosanguinous, breasts 50 cc each/24 hours, abdomen 160/155 cc over 24 hours urine cx + for E.coli start PO cipro for uti nebulizer treatment prior to discharge OnQ pump removed yesterday declines pain script instructions given to patient and daughter
[2017-08-28] MEDS ORDERED: CIPROFLOXACIN 500 MG TAB PO STA (12:07)
[2017-08-28] MEDS ORDERED: ALBUTEROL 0.5% NEB SOLN 2.5 MG/0.5 ML VIAL INH STA (12:07)
[2017-08-28 12:46] VITALS: BP 116/72; PULSE 102; PULSE 86; TEMP 37.3; O2SAT 94; O2SAT 96
--- NOTE | 2017-08-29 15:43 | Discharge Summary ---
Discharge Summary Date of Service Aug 29, 2017. Admission Date/Reason Aug 25, 2017 at 13:43 Left Breast Cancer. Discharge Date/Disposition Aug 28, 2017 Home Diagnosis Principal Diagnosis: recurrent left breast cancer Secondary Diagnoses/Problems: dyslipidemia hypertension hypothyroidism reflex incontinence depression Procedure(s) Performed bilateral mastectomy with bilateral sentinel lymph node biopsy - Dr. New Bilateral transverse rectus abdominis myocutaneous flap Consultations Physical Therapy Medication Reconciliation New Medications: Ciprofloxacin (Cipro) 250 Mg Tab 1 TAB PO BID for 3 Days, #6 TAB Continued Medications: Acetaminophen (Tylenol) 325 Mg Tab 650 MG PO PRN, TAB Atenolol (Tenormin) 25 Mg Tab 12.5 MG PO QPM, TAB Bupropion (Wellbutrin Sr) 100 Mg Ertab 100 MG PO QPM, TAB Citalopram (Citalopram Hydrobromide) 40 Mg Tab 1 TAB PO QAM for 90 Days, #90 TAB 3 Refills Gabapentin (Neurontin) 100 Mg Cap 100 MG PO TID, CAP Levothyroxine Sodium (Levothyroxine Sodium) 100 Mcg Tab 1 TAB PO QAM for 90 Days, #90 TAB 3 Refills Pravastatin (Pravachol ) 20 Mg Tab 40 MG PO QAM Discontinued Medications: [Chlor-Tab] () 4 MG PO PRN Admission Physical Exam As per Admitting History & Physical. Hospital Course Patient presented to surgery on 2//18 with history of recurrent left breast cancer. She was taken to the OR and underwent bilateral mastectomy and bilateral sentinel lymph node biopsy with Dr. New and bilateral transverse rectus abdominis myocutaneous flap by Dr. Coon. Operative findings include bilateral pink and viable flaps at the end of case. 4 NAZIA drains were placed intraoperatively. She was taken to recovery and transferred to med/surg. On POD # 1, her vital signs were stable, flaps and umbilicus viable. Later in the day her blood pressure dropped and patient was treated with a fluid bolus. She had one episode of emesis over night. On POD#2 the patient was prescribed Reglan for her nausea. She did pass gas and her nausea resolved. Her oxygen saturation dropped so patient was placed on oxygen by nasal cannula and a CXR was ordered. Findings were expected post-surgical atelectasis. Patient began to ambulate. On POD#3, the patient's UA was positive for nitrates so a culture was ordered. She was seen by PT. On POD #4, the patient's urine culture was positive for E.Coli and she was started on Cipro. Her OnQ pump was removed. Patient received nebulizer treatment and discharged home. She was pain controlled on acetaminophen and declined a script for narcotic pain medication. On exam, patient's flaps were pink, warm and viable. Her incisions were all intact and there was no evidence of infection. All drains had serosanguineous output. There was moderate ecchymosis in bilateral axilla. Patient was instructed to follow-up in the office next week. Discharge Instructions Please refer to the electronic Patient Visit Report (Discharge Instructions) for additional information.
== END 2017-08-28 14:00 | disposition home or self-care (01) | DRG 580 ==
LOC: C.ACU 05:13 → C.MSW 17:28 → CANRESERV 18:34 → ENRESERV 18:34 → OBSVTOIN 08-25 13:43
PROVIDERS: ADMIT Plastic Surgery; ATTEND Plastic Surgery
PROC: 0HTV0ZZ Resection of Bilateral Breast, Open Approach (ICD-10-PCS; principal; 2017-08-24 07:00)
PROC: 07B60ZX Excision of Left Axillary Lymphatic, Open Approach, Diagnostic (ICD-10-PCS; principal; 2017-08-24 07:00)
PROC: 07B50ZX Excision of Right Axillary Lymphatic, Open Approach, Diagnostic (ICD-10-PCS; principal; 2017-08-24 07:00)
PROC: 0WUF0JZ Supplement Abdominal Wall with Synthetic Substitute, Open Approach (ICD-10-PCS; 2017-08-24 07:00)
PROC: 0KXL0Z6 Transfer Left Abdomen Muscle, Transverse Rectus Abdominis Myocutaneous Flap, Open Approach (ICD-10-PCS; 2017-08-24 07:00)
PROC: 0KXK0Z6 Transfer Right Abdomen Muscle, Transverse Rectus Abdominis Myocutaneous Flap, Open Approach (ICD-10-PCS; 2017-08-24 07:00)
DX: C50.912 Malignant neoplasm of unspecified site of left female breast (principal); N39.0 Urinary tract infection, site not specified; F32.9 Major depressive disorder, single episode, unspecified; E03.9 Hypothyroidism, unspecified; N81.6 Rectocele; N39.498 Other specified urinary incontinence; Z80.3 Family history of malignant neoplasm of breast; Z88.1 Allergy status to other antibiotic agents; Z88.0 Allergy status to penicillin; E78.5 Hyperlipidemia, unspecified; B96.20 Unspecified Escherichia coli [E. coli] as the cause of diseases classified elsewhere